=== PATIENT | female | born 1985 | race Caucasian/White ===

== ENCOUNTER → 2016-12-14 | Outpatient (CLI) | payer MEDICAID | LOC: OD 09:09 | PROVIDERS: ATTEND Internal Medicine Cardiovascular Disease | DX: R07.9 Chest pain, unspecified (principal) | CPT/HCPCS: 71020 ==

== ENCOUNTER 2016-12-22 10:21 | Emergency (ER) | payer MEDICAID ==
--- NOTE | 2016-12-22 11:11 | ER Document Report ---
ED Medical Screen (RME) - General TRAVEL OUTSIDE OF THE [place] IN LAST 30 DAYS: No <GUS WATSON - Last Filed: 12/22/16 11:11> <CELY CHAVEZ - Last Filed: 12/22/16 13:19> - General Chief Complaint: Chest Pain Stated Complaint: CHEST PAIN Time Seen by Provider: 12/22/16 11:03 Notes: Patient is a 31-year-old female presents emergency department for chest pain. Patient states she had sharp pain from the middle of her chest into her back. Patient states she called her procurement consultant who told her to come the emergency department. Patient states that she has a history of aortic valve leak. Patient states she just started going back to her procurement consultant 2 weeks ago. Patient states they are conducting more tests to see if she has any aorta damage. Patient states her normal symptoms are some chest pressure, not being able to lay on her side, and some palpitations. Today at work she had chest pain with shortness of breath, and feeling faint. Patient's procurement consultant is Dr. Kemar Patterson. Patient also has hypertension (takes metoprolol) and a thyroid condition (no meds). (GUS WATSON) - Related Data Allergies/Adverse Reactions: amoxicillin [Amoxicillin] Allergy (Severe, Verified 12/22/16 10:46) Hives codeine [Codeine] Allergy (Severe, Verified 12/22/16 10:46) Hives Penicillins Allergy (Severe, Verified 12/22/16 10:46) Hives sulfamethoxazole [From Bactrim] Allergy (Severe, Verified 12/22/16 10:46) Hives trimethoprim [From Bactrim] Allergy (Severe, Verified 12/22/16 10:46) Hives Past Medical History - Social History Cigarette use (# per day): Yes Chew tobacco use (# tins/day): No Frequency of alcohol use: None Drug Abuse: None - Past Medical History Cardiac Medical History: Reports: Hx Hypertension - hx of with Denies: Hx Coronary Artery Disease, Hx Heart Attack Pulmonary Medical History: Denies: Hx Asthma, Hx Bronchitis, Hx COPD, Hx Pneumonia Neurological Medical History: Denies: Hx Cerebrovascular Accident, Hx Seizures Renal/ Medical History: Denies: Hx Peritoneal Dialysis Musculoskeltal Medical History: Reports Hx Arthritis Past Surgical History: Reports: Hx Gynecologic Surgery - bartholean cyst, Hx Tonsillectomy. Denies: Hx Pacemaker - Immunizations Hx Diphtheria, Pertussis, Tetanus Vaccination: No <GUS WATSON - Last Filed: 12/22/16 11:11> Physical Exam <GUS WATSON - Last Filed: 12/22/16 11:11> <CELY CHAVEZ - Last Filed: 12/22/16 13:19> - Vital signs Vitals: Temp Pulse Resp BP Pulse Ox 97.6 F 81 18 121/72 100 12/22/16 10:49 12/22/16 10:49 12/22/16 10:49 12/22/16 10:49 12/22/16 10:49 - Notes Notes: GENERAL: Alert, interacts well. No acute distress. LUNGS: Clear to auscultation bilaterally, no wheezes, rales, or rhonchi. No respiratory distress. HEART: Regular rate and rhythm. 1/6 diastolic murmur, heard best in the right second intercostal space. ABDOMEN: Soft, mild epigastric tenderness to palpation. NEUROLOGICAL: Alert and oriented x3. Normal speech. PSYCH: Normal affect, normal mood. (GUS WATSON) Course - Laboratory Result Diagrams: 12/22/16 11:28 12/22/16 11:28 <CELY CHAVEZ - Last Filed: 12/22/16 13:19> - Vital Signs Vital signs: Temp Pulse Resp BP Pulse Ox 97.6 F 81 17 121/72 100 12/22/16 10:49 12/22/16 10:49 12/22/16 12:00 12/22/16 10:49 12/22/16 12:00 - Laboratory Laboratory results interpreted by me: 12/22/16 12/22/16 11:28 11:28 WBC 12.5 H Absolute Neutrophils 9.6 H Glucose 70 L Scribe Documentation - Scribe Written by Juaquin:: Juaquin Sosa, 12/22/16 11:11 acting as scribe for :: Levon <GUS WATSON - Last Filed: 12/22/16 11:11>
--- NOTE | 2016-12-22 11:50 | RADIOLOGY REPORT (SQ) ---
EXAM DESCRIPTION: CHEST PA/LAT COMPLETED DATE/TIME: 12/22/2016 11:42 am REASON FOR STUDY: chest pain, epigastric pain COMPARISON: 10/13/2009 EXAM PARAMETERS: NUMBER OF VIEWS: two views TECHNIQUE: Digital Frontal and Lateral radiographic views of the chest acquired. RADIATION DOSE: NA LIMITATIONS: none FINDINGS: LUNGS AND PLEURA: No opacities, masses or pneumothorax. No pleural effusion. MEDIASTINUM AND HILAR STRUCTURES: No masses or contour abnormalities. HEART AND VASCULAR STRUCTURES: Heart normal size. No evidence for failure. BONES: No acute findings. HARDWARE: None in the chest. OTHER: No other significant finding. IMPRESSION: NO SIGNIFICANT RADIOGRAPHIC FINDING IN THE CHEST. TECHNICAL DOCUMENTATION: JOB ID: [id number] [employer]- All Rights Reserved
[2016-12-22 11:53] LABS: ABSOLUTE EOSINOPHILS # (AUTO) 0.1 10^3/uL (0.0-0.6); ABSOLUTE LYMPHOCYTES (AUTO) 2.3 10^3/uL (0.5-4.7); ABSOLUTE MONOCYTES (AUTO) 0.5 10^3/uL (0.1-1.4); ABSOLUTE NEUT (AUTO) 9.6 10^3/uL (1.7-8.2); BASOPHILS % (AUTO) 0.1 % (0-2); HEMOGLOBIN 14.9 g/dL (12.0-15.5); HGB HCT DIFFERENCE 0.7; MEAN CORPUSCULAR HEMOGLOBIN 29.9 pg (27.0-33.4); MEAN CORPUSCULAR HGB CONC 33.8 g/dL (32.0-36.0); MEAN CORPUSCULAR VOLUME 89 fl (80-97); MONOCYTES % (AUTO) 4.2 % (3-13); RED BLOOD COUNT 4.96 10^6/uL (3.72-5.28); RED CELL DISTRIBUTION WIDTH 12.6 % (11.5-14.0); SEGMENTED NEUTROPHILS % (AUTO) 76.7 % (42-78); WHITE BLOOD COUNT 12.5 10^3/uL (4.0-10.5)
[2016-12-22 12:11] LABS: ALANINE AMINOTRANSFERASE 18 U/L (9-52); ALBUMIN 4.7 g/dL (3.5-5.0); ALKALINE PHOSPHATASE 82 U/L (38-126); ANION GAP 13 (5-19); ASPARTATE AMINO TRANSFERASE 17 U/L (14-36); BILIRUBIN,DIRECT 0.3 mg/dL (0.0-0.4); BILIRUBIN,TOTAL 0.5 mg/dL (0.2-1.3); BLOOD UREA NITROGEN 13 mg/dL (7-20); CALCIUM 9.5 mg/dL (8.4-10.2); CARBON DIOXIDE 27 mmol/L (22-30); CHLORIDE 101 mmol/L (98-107); CREATININE RESULT 0.66 mg/dL (0.52-1.25); GLUCOSE 70 mg/dL (75-110); LIPASE 78.4 U/L (23-300); POTASSIUM 4.3 mmol/L (3.6-5.0); SODIUM 141.1 mmol/L (137-145); TOTAL PROTEIN 7.7 g/dL (6.3-8.2)
--- NOTE | 2016-12-22 13:31 | EKG REPORT ---
SEVERITY:- NORMAL ECG - SINUS RHYTHM : Confirmed by: Kemar Valenzuela MD 22-Dec-2016 13:31:27
[2016-12-22] MEDS ORDERED: LIDOCAINE 5% (700 MG) TRANSDERMAL ADH..PATCH TP ONE (13:45)
--- NOTE | 2016-12-22 13:53 | ER Document Report ---
ED General - General Chief Complaint: Chest Pain Stated Complaint: CHEST PAIN Time Seen by Provider: 12/22/16 11:03 TRAVEL OUTSIDE OF THE [place] IN LAST 30 DAYS: No - HPI Patient complains to provider of: Chest pain Notes: Patient coming in for evaluation of chest pain. Patient states has a history of aortic valve leaking and is followed by a local credit operations processor . The patient contacted and was told to come to the ER for further evaluation. Patient states he only has mild chest pressure today pain started around 8 or 9: 00 sharp worse with moving worse with picking up her child. Patient denies any recent travel denies any recent trauma denies fevers chills nausea vomiting IV drug use. Patient upon my evaluation sitting comfortably without any distress - Related Data Allergies/Adverse Reactions: amoxicillin [Amoxicillin] Allergy (Severe, Verified 12/22/16 10:46) Hives codeine [Codeine] Allergy (Severe, Verified 12/22/16 10:46) Hives Penicillins Allergy (Severe, Verified 12/22/16 10:46) Hives sulfamethoxazole [From Bactrim] Allergy (Severe, Verified 12/22/16 10:46) Hives trimethoprim [From Bactrim] Allergy (Severe, Verified 12/22/16 10:46) Hives Home Medications: Current Home Medications Metoprolol Tartrate [Metoprolol Tartrate] 1 tab PO BID 12/22/16 [History] Past Medical History - Social History Smoking Status: Current Every Day Smoker Cigarette use (# per day): Yes Chew tobacco use (# tins/day): No Frequency of alcohol use: None Drug Abuse: None Family History: Reviewed & Not Pertinent Patient has suicidal ideation: No Patient has homicidal ideation: No - Past Medical History Cardiac Medical History: Reports: Hx Hypertension - hx of with Denies: Hx Coronary Artery Disease, Hx Heart Attack Pulmonary Medical History: Denies: Hx Asthma, Hx Bronchitis, Hx COPD, Hx Pneumonia Neurological Medical History: Denies: Hx Cerebrovascular Accident, Hx Seizures Renal/ Medical History: Denies: Hx Peritoneal Dialysis Musculoskeltal Medical History: Reports Hx Arthritis Past Surgical History: Reports: Hx Gynecologic Surgery - bartholean cyst, Hx Tonsillectomy. Denies: Hx Pacemaker - Immunizations Hx Diphtheria, Pertussis, Tetanus Vaccination: No Review of Systems - Review of Systems Constitutional: No symptoms reported EENT: No symptoms reported Cardiovascular: Chest pain Respiratory: No symptoms reported Gastrointestinal: No symptoms reported Genitourinary: No symptoms reported Female Genitourinary: No symptoms reported Musculoskeletal: No symptoms reported Skin: No symptoms reported Hematologic/Lymphatic: No symptoms reported Neurological/Psychological: No symptoms reported -: Yes All other systems reviewed and negative Physical Exam - Vital signs Vitals: Temp Pulse Resp BP Pulse Ox 97.6 F 81 18 121/72 100 12/22/16 10:49 12/22/16 10:49 12/22/16 10:49 12/22/16 10:49 12/22/16 10:49 Interpretation: Normal - General General appearance: Appears well, Alert - HEENT Head: Normocephalic, Atraumatic Eyes: Normal Pupils: PERRL - Respiratory Respiratory status: No respiratory distress Chest status: Tender Breath sounds: Normal Chest palpation: Normal - Cardiovascular Rhythm: Regular Heart sounds: Normal auscultation Murmur: No - Abdominal Inspection: Normal Distension: No distension Bowel sounds: Normal Tenderness: Nontender Organomegaly: No organomegaly - Back Back: Normal, Nontender - Extremities General upper extremity: Normal inspection, Nontender, Normal color, Normal ROM , Normal temperature General lower extremity: Normal inspection, Nontender, Normal color, Normal ROM , Normal temperature, Normal weight bearing. No: Frances's sign - Neurological Neuro grossly intact: Yes Cognition: Normal Orientation: AAOx4 [place] Coma Scale Eye Opening: Spontaneous [place] Coma Scale Verbal: Oriented [place] Coma Scale Motor: Obeys Commands [place] Coma Scale Total: 15 Speech: Normal Motor strength normal: LUE, RUE, LLE, RLE Sensory: Normal - Psychological Associated symptoms: Normal affect, Normal mood - Skin Skin Temperature: Warm Skin Moisture: Dry Skin Color: Normal Course - Re-evaluation Re-evalutation: 12/22/16 19:02 Patient coming in for evaluation of chest pain. D-dimer chest x-ray and troponin EKG did not show any significant pathology. I did speak with the patient's credit operations processor who states that he will have his office call the patient for follow-up and possible 2D echo. Patient can be discharged home : The patient has atypical chest pain as the patient's chest pain is not suggestive of pulmonary embolus, cardiac ischemia, aortic dissection, or other serious etiology. Given the extremely low risk of these diagnoses further testing and evaluation for these possibilities does not appear to be indicated at this time. The patient has been instructed to return if the symptoms worsen or change in any way. - Vital Signs Vital signs: Temp Pulse Resp BP Pulse Ox 97.6 F 70 16 115/72 100 12/22/16 14:15 12/22/16 14:15 12/22/16 14:15 12/22/16 14:15 12/22/16 14:15 - Laboratory Result Diagrams: 12/22/16 11:28 12/22/16 11:28 Laboratory results interpreted by me: 12/22/16 12/22/16 11:28 11:28 WBC 12.5 H Absolute Neutrophils 9.6 H Glucose 70 L Discharge - Discharge Clinical Impression: Chest pain of uncertain etiology Condition: Good Disposition: HOME, SELF-CARE Instructions: Chest Wall Pain ([facility]), Chest Pain of Unclear Cause ([facility]) Additional Instructions: I discussed the results with your credit operations processor Dr. Valenzuela. There is no signs of cardiac damage blood clots or any pulmonary disease on her chest x-ray. Please follow-up with your credit operations processor. Return to the ER symptoms worsen. If you do receive good pain relief with the Lidoderm patch he may ask the pharmacist about [id number] pain medication. I would highly recommend over-the- counter anti-inflammatory medication for your pain Forms: Return to Work
[2016-12-22 14:16] VITALS: BP 115/72
== END 2016-12-22 14:15 | disposition home or self-care (01) ==
LOC: ER 10:21
DX: R07.89 Other chest pain (principal); F17.210 Nicotine dependence, cigarettes, uncomplicated; Z86.79 Personal history of other diseases of the circulatory system; Z88.0 Allergy status to penicillin; Z88.5 Allergy status to narcotic agent; Z88.1 Allergy status to other antibiotic agents
CPT/HCPCS: 93005; 99285; 36415; 83690; 84703; 85025; 80053; 84484; 85379; 71020; 93010; J3490

== ENCOUNTER → 2017-01-25 | Outpatient (CLI) | payer MEDICAID ==
[2017-01-25 08:48] LABS: HEMATOCRIT 42.6 % (36.0-47.0); HEMOGLOBIN 14.3 g/dL (12.0-15.5); HGB HCT DIFFERENCE 0.3; MEAN CORPUSCULAR HEMOGLOBIN 29.8 pg (27.0-33.4); MEAN CORPUSCULAR HGB CONC 33.5 g/dL (32.0-36.0); MEAN CORPUSCULAR VOLUME 89 fl (80-97); RED BLOOD COUNT 4.78 10^6/uL (3.72-5.28); RED CELL DISTRIBUTION WIDTH 12.9 % (11.5-14.0); WHITE BLOOD COUNT 6.9 10^3/uL (4.0-10.5)
[2017-01-25 09:22] LABS: ANION GAP 12 (5-19); BLOOD UREA NITROGEN 12 mg/dL (7-20); CALCIUM 8.9 mg/dL (8.4-10.2); CARBON DIOXIDE 24 mmol/L (22-30); CHLORIDE 107 mmol/L (98-107); CREATININE RESULT 0.63 mg/dL (0.52-1.25); GLUCOSE 93 mg/dL (75-110); POTASSIUM 3.7 mmol/L (3.6-5.0); SODIUM 143.4 mmol/L (137-145)
[2017-01-25 09:47] LABS: THYROID STIMULATING HORMONE 0.36 uIU/mL (0.47-4.68)
[2017-01-27 17:54] LABS: CHOLESTEROL 182.98 mg/dL (0-200); Direct HDL 45 mg/dL (>40); TRIGLYCERIDES 97 mg/dL (<150)
[2017-01-27 18:09] LABS: DIRECT LDL 115 mg/dL (<100)
== END ==
LOC: OD 07:25
PROVIDERS: ATTEND Internal Medicine Cardiovascular Disease
DX: R07.9 Chest pain, unspecified (principal); R00.2 Palpitations
CPT/HCPCS: 36415; 80048; 80061; 83735; 84439; 84443; 85027

== ENCOUNTER → 2017-02-09 | Outpatient (CLI) | payer MEDICAID ==
--- NOTE | 2017-02-10 10:34 | RADIOLOGY REPORT (SQ) ---
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 RADIONUCLIDE AND DOSE: 288 microcuries I-123. The route of agent administration: Oral ADDITIONAL DRUGS AND DOSES: None. TECHNIQUE: Iodine uptake was measured at 4 and 24 hours. Images of the neck were acquired. LIMITATIONS: None. FINDINGS: 4 HOUR UPTAKE RADIO-IODINE: 14.7%. This is at the upper limits of normal. Normal Range of 5-20% [facility] Normal Range of 5-15% [facility] Normal Range of 5-15% [facility] 24 HOUR UPTAKE RADIO-IODINE: 36%. This is above normal range. Normal Range of 7-35% [facility] Normal Range of 8-35% [facility] Normal Range of 15-30% [facility] SCAN: Homogeneous uptake of the radionuclide throughout both lobes of the gland and isthmus without a reas of increased or decreased activity. Right lobe appears slightly larger than the left, likely an atomic variant. OTHER: No other significant finding. IMPRESSION: NORMAL RADIONUCLIDE SCAN OF THYROID GLAND. Borderline Increased 4 hour, and increased 24 hour uptake of radioiodine TECHNICAL DOCUMENTATION: JOB ID: [id number] [employer]- All Rights Reserved
== END ==
LOC: RAD 09:18
PROVIDERS: ATTEND Physician Assistant
DX: E05.90 Thyrotoxicosis, unspecified without thyrotoxic crisis or storm (principal)
CPT/HCPCS: 78014; A9516

== ENCOUNTER → 2017-03-04 | Outpatient (CLI) | payer MEDICAID | LOC: OD 16:01 | PROVIDERS: ATTEND Internal Medicine Cardiovascular Disease | DX: N91.2 Amenorrhea, unspecified (principal) | CPT/HCPCS: 36415; 84703 ==

== ENCOUNTER → 2017-03-09 | Outpatient (CLI) | payer MEDICAID ==
--- NOTE | 2017-03-11 18:57 | RADIOLOGY REPORT ---
STRESS TEST REPORT PATIENT NAME: YAERD GAGNON ROOM#: DATE OF SERVICE: 03/09/2017 AGE: 31Y ORDER#: [id number] REFERRING MD: SAMANTHA SEPULVEDA M.D. INDICATION: Assess chest pains going from front to back. PROCEDURE PERFORMED: Rest/stress single isotope Cardiolite SPECT imaging with exercise stress and gated SPECT imaging. CLINICAL HISTORY: This is a 31-year-old female with no known coronary artery disease with cardiac risk factors of smoking and hypertension. Currently, symptomatology includes chest pains going from front to back with activities. REPORT: The patient performed treadmill exercise using a standard Jose Rafael protocol, completing 9 minutes and an estimated workload of 10 mets. The resting heart rate was 83 BPM and increased to 173 BPM at peak exercise, which was 90% of the maximum predicted heart rate for age. The test was stopped because of maximum effort and heart rate achieved. The blood pressure response to exercise was normal, resting blood pressure 108/ 67, and the peak exercise blood pressure was 129/63. The patient developed symptoms of chest discomfort, 2/5, at 7 minutes into exercise, this continued until 3 minutes post exercise. This chest discomfort was not the same as her original complaint. The resting 12-lead EKG showed normal sinus rhythm, [address] segments. At peak exercise, [address] depression was seen in leads II, III, aVF, and V6. Myocardial perfusion imaging was performed > 60 minutes following the injection of 7.23 mCi of Cardiolite, due to bowel uptake superimposed on inferior wall on first set of resting images, this resting image was repeated. At peak exercise, the patient was injected with 32.3 mCi of Cardiolite and exercise continued for 1 minute. Gated post-stress tomographic imaging was performed 60 minutes after stress. FINDINGS: The overall quality of the study is good. The left ventricular cavity is noted to be normal in size in both the rest and stress studies. There is no evidence of abnormal transient ischemic dilatation of left ventricular. The TID ratio was 1.03 and normal. The left ventricular ejection fraction was calculated by computer to be 48%, but it is actually normal visually. The SPECT images showed no evidence of exercise-induced myocardial ischemia and no fixed perfusion defects. The gated SPECT imaging showed normal wall motion contraction of all LV segments. The gated SPECT images showed normal wall motion contraction of all LV segments. The left ventricular ejection fraction was calculated to be 48% and actually visually normal. IMPRESSION: Myocardial perfusion imaging is normal. There is no evidence of exercise-induced myocardial ischemia or fixed perfusion defect in the left ventricle. Overall left ventricular systolic function was normal visually and there is no regional wall motion abnormality seen. No prior study for comparison. INTERPRETING PHYSICIAN: SAMANTHA SEPULVEDA M.D. /: [id number] TT: 1131 ID: [id number] /: [id number] TD: 1025 JOB: [id number] cc:SAMANTHA SEPULVEDA M.D. > MTDD
== END ==
LOC: RAD 06:43
PROVIDERS: ATTEND Internal Medicine Cardiovascular Disease
DX: R07.9 Chest pain, unspecified (principal)
CPT/HCPCS: 93017; 78452; A9500; Q9969

== ENCOUNTER → 2017-04-07 | Outpatient (CLI) | payer MEDICAID ==
--- NOTE | 2017-04-07 14:38 | RADIOLOGY REPORT (SQ) ---
EXAM DESCRIPTION: LUMBAR SPINE COMPLETE COMPLETED DATE/TIME: 04/07/2017 2:17 pm REASON FOR STUDY: LOW BACK PAIN M54.5 LOW BACK PAIN COMPARISON: None. NUMBER OF VIEWS: Five views including obliques. TECHNIQUE: AP, lateral, oblique, and sacral radiographic images acquired of the lumbar spine. LIMITATIONS: None. FINDINGS: MINERALIZATION: Normal. SEGMENTATION: Normal. No transitional anatomy. ALIGNMENT: Normal. VERTEBRAE: Maintained height. No fracture or worrisome bone lesion. DISCS: Minimal disc space narrowing L5-S1. POSTERIOR ELEMENTS: Pedicles and facets are intact. No pars defect or posterior arch defects. HARDWARE: None in the spine. PARASPINAL SOFT TISSUES: Normal. PELVIS: Intact as visualized. No fractures or worrisome bone lesions. SI joints intact. OTHER: No other significant finding. IMPRESSION: Minimal disc space narrowing L5-S1. Study otherwise normal. TECHNICAL DOCUMENTATION: JOB ID: [id number] [employer]- All Rights Reserved
== END ==
LOC: OD 14:01
PROVIDERS: ATTEND Physician Assistant
DX: M54.5 Low back pain (principal)
CPT/HCPCS: 72110